=== PATIENT | male | born 1960 | race Caucasian/White ===

== ENCOUNTER 2021-06-07 13:40 | Inpatient (IN) | payer OTHER ==
[~2021-06-07] VITALS: Ht 175.3 cm; Wt 68.8 kg
[2021-06-07 15:12] LABS: COVID AG,FIA SOURCE NASOPHARYNGEAL
[2021-06-07 15:35] LABS: BASOPHILS % (AUTO) 0.4 % (0.0-2.0); EOSINOPHILS % (AUTO) 1.9 % (1.0-6.0); HEMATOCRIT 46.3 % (41-53); HEMOGLOBIN 15.6 g/dL (13.5-17.5); LYMPHOCYTES # (AUTO) 0.4 K/uL (1.0-4.8); LYMPHOCYTES % (AUTO) 5.4 % (22.0-44.0); MEAN CORPUSCULAR HGB CONC 33.7 G/dL (31.0-37.0); MEAN CORPUSCULAR VOLUME 92 fL (80-100); NEUTROPHILS # (AUTO) 5.9 K/uL (1.8-7.7); NEUTROPHILS % (AUTO) 79.3 % (40.0-70.0); PLATELET COUNT (AUTO) 357 K/uL (150-450); RED BLOOD CELL COUNT(AUTO) 5.04 MIL/uL (4.50-5.90); RED CELL DISTRIBUTION WIDTH 14.5 % (11.5-14.5)
[2021-06-07 15:40] LABS: ANION GAP 6 mmol/L (8-16); CALCIUM, TOTAL 9.6 mg/dL (8.8-10.5); CARBON DIOXIDE 32 mmol/L (22-29); CHLORIDE 107 mmol/L (98-107); CREATININE 1.14 mg/dL (0.60-1.30); GLOMERULAR FILTR. RATE CALC > 60 mL/min (>60); GLUCOSE,RANDOM 100 mg/dL (70-110); SODIUM SERUM 145 mmol/L (136-145); UREA NITROGEN, BLOOD 41 mg/dL (7-18)
[2021-06-07 15:46] LABS: ALANINE AMINOTRANSFERASE 165 U/L (12-78); ALBUMIN 3.9 g/dL (3.4-5.0); ALKALINE PHOSPHATASE 65 U/L (46-116); ASPARTATE AMINOTRANSFERASE 176 U/L (15-37); BILIRUBIN,TOTAL 0.9 mg/dL (0.1-1.0); LIPASE 159 U/L (73-393); TOTAL PROTEIN, SERUM 7.6 g/dL (6.4-8.2)
[2021-06-07 16:01] LABS: B-TYPE NATRIURETIC PEPTIDE 19 pg/mL (0-100)
[2021-06-08] MEDS ORDERED: BISACODYL 10 MG RECTAL RECTAL SUPPOSITORY PR PRN
[2021-06-08] MEDS ORDERED: ZOLPIDEM TARTRATE 5 MG TABLET PO PRN
[2021-06-08] MEDS ORDERED: MAGNESIUM HYDROXIDE SUSPENSION 30 ML UDCUP PO PRN
[2021-06-08] MEDS ORDERED: MORPHINE SULFATE 2 MG/ML SYRINGE IVP PRN
[2021-06-08] MEDS ORDERED: ONDANSETRON HCL 4 MG/2 ML VIAL IVP PRN
[2021-06-08 02:07] VITALS: BP 149/87
[2021-06-08] MEDS: ACETAMINOPHEN 325 MG TABLET PO PRN (03:33)
[2021-06-08 05:42] VITALS: BP 104/69
[2021-06-08 08:17] VITALS: BP 126/74
[2021-06-08] MEDS: DOCUSATE SODIUM 100 MG CAPSULE PO SCH ×2 (09:35→21:00)
[2021-06-08] MEDS: PANTOPRAZOLE SODIUM 40 MG DR TABLET PO SCH (09:35)
[2021-06-08] MEDS: HYDROCODONE/ACETAMINOPHEN 5-325 MG TABLET PO PRN (09:45)
[2021-06-08] MEDS: BENZONATATE 100 MG CAPSULE PO PRN ×2 (11:23→23:13)
[2021-06-08] MEDS: ATORVASTATIN CALCIUM 20 MG TABLET PO SCH (11:23)
[2021-06-08] MEDS: ASPIRIN 81 MG CHEWABLE TABLET PO SCH (11:23)
[2021-06-08] MEDS: HEPARIN SODIUM,PORCINE 5,000 UNITS/ML VIAL SQ SCH ×2 (15:53→23:13)
[2021-06-08 16:35] VITALS: BP 121/73
[2021-06-08 20:38] LABS: C.DIFF GDH ANTIGEN, Stool Positive (Negative); C.DIFF TOXINS A&B, Stool Negative (Negative)
[2021-06-08 20:51] VITALS: BP 103/73
[2021-06-09 00:49] LABS: AMPHET/METH SCREEN,URINE NEGATIVE (NEGATIVE); BARBITURATE SCREEN, URINE NEGATIVE (NEGATIVE); BENZODIAZEPINES SCREEN,URINE NEGATIVE (NEGATIVE); CANNABINOID SCREEN,URINE NEGATIVE (NEGATIVE); COCAINE SCREEN,URINE NEGATIVE (NEGATIVE); METHADONE SCREEN, URINE NEGATIVE (NEGATIVE); OPIATE SCREEN,URINE POSITIVE (NEGATIVE)
[2021-06-09 00:53] LABS: PHENCYCLIDINE SCREEN,URINE NEGATIVE (NEGATIVE)
[2021-06-09 03:06] LABS: APPEARANCE,URINE TURBID (CLEAR); BILIRUBIN,URINE NEGATIVE (NEGATIVE); GLUCOSE, URINE (UA) NEGATIVE (NEGATIVE); KETONES,URINE TRACE mg/dL (NEGATIVE); LEUKOCYTE ESTERASE ,URINE NEGATIVE (NEGATIVE); NITRATE,URINE NEGATIVE (NEGATIVE); OCCULT BLOOD,URINE SMALL (NEGATIVE); PROTEIN,URINE POS 1+ (NEGATIVE); UROBILINOGEN,URINE 0.2 mg/dL (<=1.0)
[2021-06-09 03:10] LABS: BACTERIA,URINE Many /HPF (None Seen)
[2021-06-09 05:22] VITALS: BP 105/63
[2021-06-09 05:32] VITALS: BP 109/74
[2021-06-09] MEDS: HEPARIN SODIUM,PORCINE 5,000 UNITS/ML VIAL SQ SCH ×3 (08:40→23:35)
[2021-06-09] MEDS: PANTOPRAZOLE SODIUM 40 MG DR TABLET PO SCH (08:40)
[2021-06-09] MEDS: DOCUSATE SODIUM 100 MG CAPSULE PO SCH ×2 (08:40→20:57)
[2021-06-09] MEDS: ATORVASTATIN CALCIUM 20 MG TABLET PO SCH (08:40)
[2021-06-09] MEDS: ASPIRIN 81 MG CHEWABLE TABLET PO SCH (08:40)
[2021-06-09 09:37] VITALS: BP 104/70
[2021-06-09 15:35] VITALS: BP 100/60
[2021-06-09] MEDS: ACETAMINOPHEN 325 MG TABLET PO PRN (20:57)
[2021-06-09 21:21] VITALS: BP 113/66
[2021-06-10 04:51] VITALS: BP 99/65
[2021-06-10 07:42] VITALS: BP 100/64
[2021-06-10] MEDS: PANTOPRAZOLE SODIUM 40 MG DR TABLET PO SCH (08:11)
[2021-06-10] MEDS: DOCUSATE SODIUM 100 MG CAPSULE PO SCH ×3 (08:11→20:50)
[2021-06-10] MEDS: ATORVASTATIN CALCIUM 20 MG TABLET PO SCH (08:11)
[2021-06-10] MEDS: ASPIRIN 81 MG CHEWABLE TABLET PO SCH (08:11)
[2021-06-10] MEDS: HEPARIN SODIUM,PORCINE 5,000 UNITS/ML VIAL SQ SCH ×3 (08:11→23:35)
[2021-06-10] MEDS: VANCOMYCIN HCL 125 MG/2.5 ML SOLUTION ORAL.SYG PO SCH ×3 (12:52→23:35)
[2021-06-10 15:37] VITALS: BP 122/70
[2021-06-10 20:21] VITALS: BP 103/66
[2021-06-11 04:45] VITALS: BP 113/66
[2021-06-11] MEDS: VANCOMYCIN HCL 125 MG/2.5 ML SOLUTION ORAL.SYG PO SCH ×4 (06:04→23:56)
[2021-06-11 06:18] LABS: HEMATOCRIT 43.4 % (41-53); HEMOGLOBIN 14.8 g/dL (13.5-17.5); MEAN CORPUSCULAR HEMOGLOBIN 31.2 pg (26.0-34.0); MEAN CORPUSCULAR VOLUME 92 fL (80-100); PLATELET COUNT (AUTO) 358 K/uL (150-450); RED BLOOD CELL COUNT(AUTO) 4.74 MIL/uL (4.50-5.90); RED CELL DISTRIBUTION WIDTH 14.3 % (11.5-14.5)
[2021-06-11 06:40] LABS: ALANINE AMINOTRANSFERASE 58 U/L (12-78); ALBUMIN 2.6 g/dL (3.4-5.0); ALKALINE PHOSPHATASE 46 U/L (46-116); ANION GAP 5 mmol/L (8-16); ASPARTATE AMINOTRANSFERASE 20 U/L (15-37); BILIRUBIN,TOTAL 0.3 mg/dL (0.1-1.0); CALCIUM, TOTAL 8.8 mg/dL (8.8-10.5); CARBON DIOXIDE 33 mmol/L (22-29); CHLORIDE 107 mmol/L (98-107); CREATININE 1.01 mg/dL (0.60-1.30); GLOMERULAR FILTR. RATE CALC > 60 mL/min (>60); GLUCOSE,RANDOM 96 mg/dL (70-110); POTASSIUM 4.1 mmol/L (3.5-5.1); SODIUM SERUM 145 mmol/L (136-145); TOTAL PROTEIN, SERUM 6.4 g/dL (6.4-8.2); UREA NITROGEN, BLOOD 22 mg/dL (7-18)
[2021-06-11 07:59] VITALS: BP 114/56
[2021-06-11] MEDS: DOCUSATE SODIUM 100 MG CAPSULE PO SCH ×2 (08:23→21:00)
[2021-06-11] MEDS: ATORVASTATIN CALCIUM 20 MG TABLET PO SCH (08:23)
[2021-06-11] MEDS: HEPARIN SODIUM,PORCINE 5,000 UNITS/ML VIAL SQ SCH ×3 (08:23→23:56)
[2021-06-11] MEDS: PANTOPRAZOLE SODIUM 40 MG DR TABLET PO SCH (08:23)
[2021-06-11] MEDS: ASPIRIN 81 MG CHEWABLE TABLET PO SCH (08:23)
[2021-06-11 08:57] LABS: BAND NEUTROPHILS % (MANUAL) 1 % (0-5); EOSINOPHILS % (MANUAL) 1 % (1-6); LYMPHOCYTES % (MANUAL) 35 % (22-44); MONOCYTES % (MANUAL) 7 % (2-9); SEGMENTED NEUTROPHILS % 56 % (40-70)
[2021-06-11 20:16] VITALS: BP 144/71
[2021-06-12 04:56] VITALS: BP 115/73
[2021-06-12] MEDS: VANCOMYCIN HCL 125 MG/2.5 ML SOLUTION ORAL.SYG PO SCH ×4 (06:17→23:57)
[2021-06-12 08:14] VITALS: BP 118/71
[2021-06-12] MEDS: PANTOPRAZOLE SODIUM 40 MG DR TABLET PO SCH (08:35)
[2021-06-12] MEDS: HYDROCODONE/ACETAMINOPHEN 5-325 MG TABLET PO PRN ×2 (08:36→15:26)
[2021-06-12] MEDS: HEPARIN SODIUM,PORCINE 5,000 UNITS/ML VIAL SQ SCH ×3 (08:36→23:57)
[2021-06-12] MEDS: DOCUSATE SODIUM 100 MG CAPSULE PO SCH ×2 (08:36→21:00)
[2021-06-12] MEDS: ASPIRIN 81 MG CHEWABLE TABLET PO SCH (08:36)
[2021-06-12] MEDS: ATORVASTATIN CALCIUM 20 MG TABLET PO SCH (08:36)
[2021-06-12 20:46] VITALS: BP 111/74
[2021-06-13 04:48] VITALS: BP 121/72
[2021-06-13] MEDS: VANCOMYCIN HCL 125 MG/2.5 ML SOLUTION ORAL.SYG PO SCH ×3 (06:09→17:16)
[2021-06-13 08:19] VITALS: BP 95/69
[2021-06-13] MEDS: ATORVASTATIN CALCIUM 20 MG TABLET PO SCH (08:57)
[2021-06-13] MEDS: ASPIRIN 81 MG CHEWABLE TABLET PO SCH (08:57)
[2021-06-13] MEDS: HEPARIN SODIUM,PORCINE 5,000 UNITS/ML VIAL SQ SCH ×2 (08:57→16:30)
[2021-06-13] MEDS: PANTOPRAZOLE SODIUM 40 MG DR TABLET PO SCH (08:57)
[2021-06-13] MEDS: DOCUSATE SODIUM 100 MG CAPSULE PO SCH ×2 (08:57→20:36)
[2021-06-13 15:36] VITALS: BP 110/71
[2021-06-13 20:18] VITALS: BP 113/71
[2021-06-14 05:09] VITALS: BP 99/67
[2021-06-14] MEDS: VANCOMYCIN HCL 125 MG/2.5 ML SOLUTION ORAL.SYG PO SCH ×5 (05:59→23:36)
[2021-06-14 08:52] VITALS: BP 103/59
[2021-06-14] MEDS: PANTOPRAZOLE SODIUM 40 MG DR TABLET PO SCH (09:09)
[2021-06-14] MEDS: ATORVASTATIN CALCIUM 20 MG TABLET PO SCH (09:09)
[2021-06-14] MEDS: HEPARIN SODIUM,PORCINE 5,000 UNITS/ML VIAL SQ SCH ×4 (09:09→23:36)
[2021-06-14] MEDS: DOCUSATE SODIUM 100 MG CAPSULE PO SCH ×2 (09:09→21:00)
[2021-06-14] MEDS: ASPIRIN 81 MG CHEWABLE TABLET PO SCH (09:09)
[2021-06-14 20:48] VITALS: BP 98/59
[2021-06-14] MEDS: ACETAMINOPHEN 325 MG TABLET PO PRN (21:53)
[2021-06-15 04:50] VITALS: BP 121/77
[2021-06-15] MEDS: VANCOMYCIN HCL 125 MG/2.5 ML SOLUTION ORAL.SYG PO SCH ×4 (06:08→23:48)
[2021-06-15 07:33] VITALS: BP 101/68
[2021-06-15] MEDS: ATORVASTATIN CALCIUM 20 MG TABLET PO SCH (08:23)
[2021-06-15] MEDS: PANTOPRAZOLE SODIUM 40 MG DR TABLET PO SCH (08:23)
[2021-06-15] MEDS: ASPIRIN 81 MG CHEWABLE TABLET PO SCH (08:23)
[2021-06-15] MEDS: HEPARIN SODIUM,PORCINE 5,000 UNITS/ML VIAL SQ SCH ×3 (08:24→23:48)
[2021-06-15] MEDS: DOCUSATE SODIUM 100 MG CAPSULE PO SCH ×2 (08:24→20:56)
[2021-06-15 15:32] VITALS: BP 105/68
[2021-06-15 19:20] VITALS: BP 117/68
[2021-06-15] MEDS: ACETAMINOPHEN 325 MG TABLET PO PRN (20:53)
[2021-06-16 04:40] VITALS: BP 108/63
[2021-06-16] MEDS: ACETAMINOPHEN 325 MG TABLET PO PRN ×3 (05:38→23:41)
[2021-06-16] MEDS: VANCOMYCIN HCL 125 MG/2.5 ML SOLUTION ORAL.SYG PO SCH ×4 (05:38→23:40)
[2021-06-16] MEDS: HEPARIN SODIUM,PORCINE 5,000 UNITS/ML VIAL SQ SCH ×3 (08:26→23:40)
[2021-06-16] MEDS: DOCUSATE SODIUM 100 MG CAPSULE PO SCH ×2 (08:27→20:15)
[2021-06-16] MEDS: ATORVASTATIN CALCIUM 20 MG TABLET PO SCH (08:27)
[2021-06-16] MEDS: ASPIRIN 81 MG CHEWABLE TABLET PO SCH (08:27)
[2021-06-16] MEDS: PANTOPRAZOLE SODIUM 40 MG DR TABLET PO SCH (08:27)
[2021-06-16 08:39] VITALS: BP 104/71
[2021-06-16] MEDS ORDERED: ASPI-1444 PO (12:31)
[2021-06-16] MEDS ORDERED: ATOR20TA86 PO (12:32)
[2021-06-16] MEDS ORDERED: VANCOPO PO (12:37)
[2021-06-16] MEDS ORDERED: ACET-3207 PO (12:39)
[2021-06-16] MEDS ORDERED: MOM30 PO (12:40)
[2021-06-16 16:16] VITALS: BP 110/66
[2021-06-16 21:21] VITALS: BP 109/66
[2021-06-17] MEDS: VANCOMYCIN HCL 125 MG/2.5 ML SOLUTION ORAL.SYG PO SCH ×4 (05:38→23:25)
[2021-06-17] MEDS: ACETAMINOPHEN 325 MG TABLET PO PRN ×2 (05:38→20:23)
[2021-06-17 06:13] VITALS: BP 112/69
[2021-06-17 08:18] VITALS: BP 101/58
[2021-06-17] MEDS: ATORVASTATIN CALCIUM 20 MG TABLET PO SCH (08:53)
[2021-06-17] MEDS: DOCUSATE SODIUM 100 MG CAPSULE PO SCH ×2 (08:53→20:13)
[2021-06-17] MEDS: ASPIRIN 81 MG CHEWABLE TABLET PO SCH (08:53)
[2021-06-17] MEDS: HEPARIN SODIUM,PORCINE 5,000 UNITS/ML VIAL SQ SCH ×3 (08:53→23:25)
[2021-06-17] MEDS: PANTOPRAZOLE SODIUM 40 MG DR TABLET PO SCH (08:53)
[2021-06-17 20:07] VITALS: BP 115/67
[2021-06-18] MEDS: ACETAMINOPHEN 325 MG TABLET PO PRN ×2 (02:22→21:13)
[2021-06-18] MEDS: VANCOMYCIN HCL 125 MG/2.5 ML SOLUTION ORAL.SYG PO SCH (04:47)
[2021-06-18 04:49] VITALS: BP 109/68
[2021-06-18] MEDS: HEPARIN SODIUM,PORCINE 5,000 UNITS/ML VIAL SQ SCH ×2 (08:22→15:43)
[2021-06-18] MEDS: ATORVASTATIN CALCIUM 20 MG TABLET PO SCH (08:22)
[2021-06-18] MEDS: PANTOPRAZOLE SODIUM 40 MG DR TABLET PO SCH (08:22)
[2021-06-18] MEDS: DOCUSATE SODIUM 100 MG CAPSULE PO SCH ×2 (08:22→21:10)
[2021-06-18] MEDS: ASPIRIN 81 MG CHEWABLE TABLET PO SCH (08:23)
[2021-06-18 09:03] VITALS: BP 100/54
[2021-06-18 15:43] VITALS: BP 120/72
[2021-06-18] MEDS ORDERED: VANCOMYCIN HCL 125 MG/2.5 ML SOLUTION ORAL.SYG PO ONE (16:30)
[2021-06-18 20:30] VITALS: BP 117/70
[2021-06-19] MEDS: HEPARIN SODIUM,PORCINE 5,000 UNITS/ML VIAL SQ SCH ×3 (00:08→16:00)
[2021-06-19 04:40] VITALS: BP 110/65
[2021-06-19] MEDS: ATORVASTATIN CALCIUM 20 MG TABLET PO SCH (08:32)
[2021-06-19] MEDS: DOCUSATE SODIUM 100 MG CAPSULE PO SCH ×2 (08:32→19:59)
[2021-06-19] MEDS: PANTOPRAZOLE SODIUM 40 MG DR TABLET PO SCH (08:32)
[2021-06-19] MEDS: ASPIRIN 81 MG CHEWABLE TABLET PO SCH (08:33)
[2021-06-19 19:33] VITALS: BP 120/76
[2021-06-20 03:48] VITALS: BP 115/74
[2021-06-20 07:55] VITALS: BP 111/70
[2021-06-20] MEDS: HEPARIN SODIUM,PORCINE 5,000 UNITS/ML VIAL SQ SCH ×3 (08:00→16:00)
[2021-06-20] MEDS: DOCUSATE SODIUM 100 MG CAPSULE PO SCH ×2 (09:00→21:00)
[2021-06-20] MEDS: ATORVASTATIN CALCIUM 20 MG TABLET PO SCH (09:33)
[2021-06-20] MEDS: ASPIRIN 81 MG CHEWABLE TABLET PO SCH (09:33)
[2021-06-20] MEDS: PANTOPRAZOLE SODIUM 40 MG DR TABLET PO SCH (09:33)
[2021-06-20 16:05] VITALS: BP 107/66
[2021-06-20] MEDS: ACETAMINOPHEN 325 MG TABLET PO PRN (16:34)
[2021-06-20 20:22] VITALS: BP 104/53
[2021-06-21] MEDS: ACETAMINOPHEN 325 MG TABLET PO PRN ×2 (01:32→20:45)
[2021-06-21 05:43] VITALS: BP 120/71
[2021-06-21 07:55] VITALS: BP 116/64
[2021-06-21] MEDS: ATORVASTATIN CALCIUM 20 MG TABLET PO SCH (08:07)
[2021-06-21] MEDS: DOCUSATE SODIUM 100 MG CAPSULE PO SCH ×2 (08:07→20:44)
[2021-06-21] MEDS: HEPARIN SODIUM,PORCINE 5,000 UNITS/ML VIAL SQ SCH ×4 (08:07→23:00)
[2021-06-21] MEDS: ASPIRIN 81 MG CHEWABLE TABLET PO SCH (08:07)
[2021-06-21] MEDS: PANTOPRAZOLE SODIUM 40 MG DR TABLET PO SCH (08:07)
[2021-06-21] MEDS: LACTOBACILLUS ACIDOPHILUS/BULGARICUS TABLET PO SCH ×2 (12:12→20:45)
[2021-06-21 20:15] VITALS: BP 103/77
[2021-06-22 04:15] VITALS: BP 109/63
[2021-06-22] MEDS: ACETAMINOPHEN 325 MG TABLET PO PRN ×2 (04:18→20:49)
[2021-06-22 07:40] VITALS: BP 114/58
[2021-06-22] MEDS: ASPIRIN 81 MG CHEWABLE TABLET PO SCH (08:52)
[2021-06-22] MEDS: HEPARIN SODIUM,PORCINE 5,000 UNITS/ML VIAL SQ SCH ×3 (08:52→23:36)
[2021-06-22] MEDS: DOCUSATE SODIUM 100 MG CAPSULE PO SCH ×2 (08:53→20:44)
[2021-06-22] MEDS: ATORVASTATIN CALCIUM 20 MG TABLET PO SCH (08:53)
[2021-06-22] MEDS: PANTOPRAZOLE SODIUM 40 MG DR TABLET PO SCH (08:53)
[2021-06-22] MEDS: LACTOBACILLUS ACIDOPHILUS/BULGARICUS TABLET PO SCH ×2 (08:53→20:44)
[2021-06-22 15:40] VITALS: BP 100/66
[2021-06-22 20:30] VITALS: BP 126/64
[2021-06-23 05:35] VITALS: BP 111/64
[2021-06-23 08:21] VITALS: BP 114/65
[2021-06-23] MEDS: ASPIRIN 81 MG CHEWABLE TABLET PO SCH (08:33)
[2021-06-23] MEDS: LACTOBACILLUS ACIDOPHILUS/BULGARICUS TABLET PO SCH ×2 (08:33→21:02)
[2021-06-23] MEDS: HEPARIN SODIUM,PORCINE 5,000 UNITS/ML VIAL SQ SCH ×2 (08:33→15:27)
[2021-06-23] MEDS: DOCUSATE SODIUM 100 MG CAPSULE PO SCH ×3 (08:34→21:02)
[2021-06-23] MEDS: ATORVASTATIN CALCIUM 20 MG TABLET PO SCH (08:34)
[2021-06-23] MEDS: PANTOPRAZOLE SODIUM 40 MG DR TABLET PO SCH (08:34)
[2021-06-23 16:06] VITALS: BP 101/63
[2021-06-23 19:15] VITALS: BP 106/67
[2021-06-24] MEDS: HEPARIN SODIUM,PORCINE 5,000 UNITS/ML VIAL SQ SCH ×3 (00:16→08:39)
[2021-06-24 04:15] VITALS: BP 109/62
[2021-06-24] MEDS: ACETAMINOPHEN 325 MG TABLET PO PRN (05:29)
[2021-06-24 08:27] VITALS: BP 107/67
[2021-06-24] MEDS: LACTOBACILLUS ACIDOPHILUS/BULGARICUS TABLET PO SCH (08:38)
[2021-06-24] MEDS: ATORVASTATIN CALCIUM 20 MG TABLET PO SCH (08:39)
[2021-06-24] MEDS: ASPIRIN 81 MG CHEWABLE TABLET PO SCH (08:39)
[2021-06-24] MEDS: DOCUSATE SODIUM 100 MG CAPSULE PO SCH (08:39)
[2021-06-24] MEDS: PANTOPRAZOLE SODIUM 40 MG DR TABLET PO SCH (08:40)
== END 2021-06-24 14:30 | DRG 65 ==
LOC: EMS 13:46 → 6S 06-08 00:21
PROVIDERS: ADMIT Internal Medicine; ATTEND Internal Medicine
DX: I63.9 Cerebral infarction, unspecified (principal); A04.72 Enterocolitis due to Clostridium difficile, not specified as recurrent; S20.221A Contusion of right back wall of thorax, initial encounter; R29.6 Repeated falls; J44.9 Chronic obstructive pulmonary disease, unspecified; R26.81 Unsteadiness on feet; Z20.822 Contact with and (suspected) exposure to COVID-19; Z87.891 Personal history of nicotine dependence; Z79.82 Long term (current) use of aspirin
CPT/HCPCS: 70450; 70551; 71101; 80053; 81001; 83605; 83690; 83880; 84484; 85025; 87081; 87086; 87324; 87449; 93005; 93880; 97112; 97116; 97162; 97165; 97530; 97535; 99285; J1644